=== PATIENT | female | born 1945 | race Caucasian/White ===

== ENCOUNTER 2017-01-04 14:55 | Emergency (ER) | payer MEDICARE, OTHER ==
[2017-01-04 15:00] VITALS: BP 143/67
--- NOTE | 2017-01-04 15:55 | EDM.PDOC ---
ED HISTORY OF PRESENT ILLNESS - General Chief Complaint: Respiratory Problem Stated Complaint: COUGH Time Seen by Provider: 01/04/17 15:31 Source of Information: Reports: Patient History Limitations: Reports: No limitations - History of Present Illness INITIAL COMMENTS - FREE TEXT/NARRATIVE: One week history of sinus congestion and pressure. Post nasal drip. Throat irritated. Cough. No SOB/Wheezing. Feels tired. Nausea with coughing. No vomiting/bowel changes or other GI complaints. Denies ear pain. ROS otherwise negative. No fevers/chills. Smokes almost 2PPD. - Related Data Allergies/ADRs: Allergies Allergy/AdvReac Type Severity Reaction Status Date / Time Sulfa (Sulfonamide Allergy Nausea Verified 01/04/17 15:02 Antibiotics) Home Meds: Home Meds Amoxicillin 875 mg PO BID #10 tab 01/04/17 [Rx] Lovastatin [Mevacor] 40 mg PO DAILY 01/04/17 [History] Nitrofurantoin Macrocrystal [Macrodantin] 50 mg PO DAILY 01/04/17 [History] PARoxetine HCl [Paroxetine HCl] 30 mg PO DAILY 01/04/17 [History] Pramipexole [Mirapex] 0.125 mg PO 1800 01/04/17 [History] Pramipexole [Mirapex] 2 tab PO BEDTIME 01/04/17 [History] Prednisone [IMW: predniSONE] 40 mg PO WITHBREAKFAST #10 tab 01/04/17 [Rx] Triamterene/Hydrochlorothiazid [Triamterene-HCTZ 37.5-25 MG] 1 each PO DAILY 10/11 [History] metFORMIN [Glucophage] 850 mg PO BIDMEALS 01/04/17 [History] Past Medical History Cardiovascular History: Reports: High cholesterol, Hypertension Respiratory History: Reports: COPD Musculoskeletal History: Reports: Other (see below) (restless leg) Psychiatric History: Reports: Depression Endocrine/Metabolic History: Reports: Diabetes, type II, Obesity/BMI 30+ ED ROS GENERAL - Review of Systems Review Of Systems: ROS reveals no pertinent complaints other than HPI. ED EXAM, GENERAL - Physical Exam Exam: See Below Exam Limited By: No limitations General Appearance: alert, no apparent distress, obese Eye Exam: bilateral eye: EOMI, normal inspection, PERRL Ears: normal external exam, normal canal, hearing grossly normal, normal TMs Nose: normal inspection. No: nasal drainage Throat/Mouth: Normal inspection, Normal oropharynx, Normal voice, No airway compromise Head: atraumatic, normocephalic Neck: normal inspection, supple, non-tender, full range of motion. No: lymphadenopathy (L), lymphadenopathy (R) Respiratory/Chest: no respiratory distress, lungs clear, normal breath sounds, no accessory muscle use Cardiovascular: normal peripheral pulses, regular rate, rhythm, systolic murmur Peripheral Pulses: 2+: radial (L), radial (R) GI/Abdominal: normal bowel sounds, soft, non tender Back Exam: No: CVA tenderness (L), CVA tenderness (R) Extremities: normal capillary refill Neurological: alert, oriented, normal cognition, normal gait, no motor/sensory deficits Psychiatric: normal affect, normal mood Skin Exam: Warm, Dry, Intact, Normal color Course - Vital Signs Last Recorded V/S: Last Vital Signs Temp 36.6 C 01/04/17 14:56 Pulse 72 01/04/17 14:56 Resp 20 01/04/17 14:56 BP 143/67 H 01/04/17 14:56 Pulse Ox 98 01/04/17 14:56 - Re-Assessments/Exams Free Text/Narrative Re-Assessment/Exam: 01/04/17 16:26 Given patient's history of heavy smoking and no improvement of symptoms for over 7 days, will treat with course of Amoxicillin. Discussed with patient that this could be viral in nature and antibiotics will not be of help. Smoking cessation encouraged. Patient placed on Prednisone for 5 days to help with cough. Received cough medicine and initial antibiotic doses to take home from [facility]. She will pickle maker additional Amox and the prednisone tomorrow at pharmacy. She is to follow up as needed. Departure - Departure Time of Disposition: 15:50 Disposition: Home, Self-Care 01 Condition: good Clinical Impression: Upper respiratory tract infection Qualifiers: URI type: unspecified URI Qualified Code(s): J06.9 - Acute upper respiratory infection, unspecified Prescriptions: Amoxicillin 875 mg PO BID #10 tab Prednisone [IMW: predniSONE] 40 mg PO WITHBREAKFAST #10 tab Instructions: Smoking Cessation, Tips for Success, [id number], Upper Respiratory Infection, Adult, [id number] Referrals: PCP,Unknown [Primary Care Provider] - Forms: ED Department Discharge Additional Instructions: Follow up with your primary provider if you are not improving within the next 2- 3 days. Follow up earlier if you have sudden worsening problems.
== END 2017-01-04 16:15 | disposition home or self-care (01) ==
LOC: LL.ED 14:55
DX: J06.9 Acute upper respiratory infection, unspecified (principal); E78.00 Pure hypercholesterolemia, unspecified; I10 Essential (primary) hypertension; J44.9 Chronic obstructive pulmonary disease, unspecified; F32.9 Major depressive disorder, single episode, unspecified; E11.9 Type 2 diabetes mellitus without complications; E66.9 Obesity, unspecified; Z88.2 Allergy status to sulfonamides; Z79.899 Other long term (current) drug therapy
CPT/HCPCS: 87804; 99283

== ENCOUNTER 2017-03-23 08:19 | Emergency (ER) | payer MEDICARE, OTHER ==
--- NOTE | 2017-03-23 08:38 | EDM.PDOC ---
ED HPI GENERAL MEDICAL PROBLEM - General Chief Complaint: ENT Problem Stated Complaint: Vertigo Time Seen by Provider: 03/23/17 08:25 Source of Information: Reports: Patient, EMS, EMS Notes Reviewed, Family ( ), Old Records ([facility] chart/EMR) History Limitations: Reports: No Limitations - History of Present Illness INITIAL COMMENTS - FREE TEXT/NARRATIVE: The patient was brought to the emergency room via ambulance with quarter supervisor accompaniment with saline lock placed and patient given Zofran IV with some improvement of her nausea, however persistent moderate vertigo. She has had some nonspecific intermittent vertigo for the last couple of days with significantly exacerbated symptoms since about 2 a.m. this morning, when she went to the bathroom. She does have a history of chronic intermittent vertigo in the past and has been noncompliant with her medications, including meclizine etc. She did not take her morning medications. Her Accu-Chek at home earlier this morning was 156 mg percent. The patient denies any chest pain/pressure, heart flutter, orthostasis, orthopnea, diaphoresis, paresthesias, recent decreased exercise tolerance, or any other anginal-type symptoms. No recent history of abdominal pain, heartburn, diarrhea, melena, gross hematochezia, or any food intolerance, including fatty foods, etc.. She has been compliant with her daily catheterizations and uroprophylaxis with no current UTI symptoms. Patient has had a two-month history of yellowish greenish nasal drainage and sinus pressure with distant antibiotic therapy of unknown type, however no recent history of fever or known exposure to infection. She denies any pain or discomfort Onset: Today, Gradual Onset Date: 03/23/17 Onset Time: 02:00 Duration: Constant Quality: Reports: Same as Previous Episode Improves with: Reports: Rest Worsens with: Reports: Movement Context: Reports: Other (As above) Associated Symptoms: Reports: Nausea/Vomiting (No emesis). Denies: Confusion, Chest Pain, Cough, Diaphoresis, Fever/Chills, Headaches, Loss of Appetite, Malaise, Rash, Seizure, Shortness of Breath, Syncope, Weakness Treatments FLOATER OPERATOR: Reports: IV/IO, Other Medication(s) (As above), Other (see below ) (As above) - Related Data Allergies Allergy/AdvReac Type Severity Reaction Status Date / Time Sulfa (Sulfonamide Allergy Nausea Verified 03/23/17 08:32 Antibiotics) Home Meds: Home Meds Lovastatin [Mevacor] 40 mg PO DAILY 01/04/17 [History] Nitrofurantoin Macrocrystal [Macrodantin] 50 mg PO DAILY 01/04/17 [History] PARoxetine HCl [Paroxetine HCl] 30 mg PO DAILY 01/04/17 [History] Pramipexole [Mirapex] 2 tab PO 1800 01/04/17 [History] Triamterene/Hydrochlorothiazid [Triamterene-HCTZ 37.5-25 MG] 1 each PO DAILY 10/11 [History] metFORMIN [Glucophage] 850 mg PO BIDMEALS 01/04/17 [History] Ciprofloxacin HCl [Cipro] 500 mg PO BID #14 tablet 03/23/17 [Rx] Fish Oil/[place]-3 Fatty Acids [Fish Oil 1,000 MG] 1 cap PO DAILY 03/23/17 [ History] Flaxseed/Omega3,6,9/Fatty Acid [Flax Seed Oil 1,300 mg Softgel] 1 cap PO DAILY 03/23/17 [History] Meclizine HCl 25 mg PO Q6HR PRN #0 03/23/17 [Rx] Melatonin 2 tab PO BEDTIME PRN 03/23/17 [History] Past Medical History HEENT History: Reports: Cataract, Impaired Vision, Other (See Below). Denies: Allergic Rhinitis, Glaucoma, Hard of Hearing, Macular Degeneration, Retinal Detachment Other HEENT History: Patient wears glasses with no history of diabetic retinopathy, chronic vertigo Cardiovascular History: Reports: Arrhythmia, CAD, Heart Failure, Heart Murmur, High Cholesterol, Hypertension, Other (See Below). Denies: Afib, Aneurysm, Automatic Implantable Cardioverter Defibrillators, Blood Clots/VTE/DVT, HI, Pacemaker, PTCA, PVD, Stents, Syncope Other Cardiovascular History: History of WPW with cardiac ablation as below, coronary artery disease with probable anterolateral cardiac ischemia, no history of HI or other cardiac procedures, complete right bundle branch block; PACs, PVCs, and occasional couplets with exercise, cardiomegaly with left atrial enlargement and history of mild mitral valve insufficiency and tricuspid valve insufficiency by echocardiogram, dyslipidemia Respiratory History: Reports: Bronchitis, Recurrent, COPD, Intubation, Previous. Denies: Asthma, PE, Pneumothorax, Sleep Apnea, TB Gastrointestinal History: Reports: Colon Polyp, Diverticulosis, GERD, Hemorrhoids, Other (See Below). Denies: Bowel Obstruction, Celiac Disease, Cholelithiasis, Chronic Constipation, Chronic Diarrhea, Fecal Incontinence, Gastritis, GI Bleed, Hepatitis, Inflammatory Bowel Disease, Irritable Bowel Syndrome, Jaundice, Pancreatitis Other Gastrointestinal History: History of multiple colonic polyps including hyperplastic colonic polyps in the rectosigmoid region with polyps of unknown character in the transverse colon and hepatic flexure Genitourinary History: Reports: Diabetic Nephropathy, Retention, Urinary, Urinary Incontinence, UTI, Recurrent, Other (See Below). Denies: Acute Renal Failure, Chronic Renal Insuffiency, Renal Calculus, STD Other Genitourinary History: Urethral stenosis with daily self-catheterization, benign renal cysts, history of microalbuminemia with no significant decreased renal function QUANTITATIVE DEVELOPER History: Reports: Endometriosis, . Denies: Dysfunctional Uterine Bleeding, Fibroids, Spontaneous : 1 Para: 1 (Full term without complications during pregnancies or deliveries) LMP (Approximate): Menopausal (Surgical menopause secondary to endometriosis) Musculoskeletal History: Reports: Arthritis, Back Pain, Chronic, Fracture, Neck Pain, Chronic, Osteoarthritis, Osteoporosis, Other (See Below). Denies: Amputation, Gout, RA, SLE Other Musculoskeletal History: Left 10th rib fracture on 06/14/12 Neurological History: Reports: Neuropathy, Diabetic, Neuropathy, Peripheral, Other (See Below). 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 Denies: Abuse , Victim of, ADD, ADHD, Addiction, Psych Hospitalization(s), PTSD, Suicide Attempt, Suicidal Ideation Endocrine/Metabolic History: Reports: Diabetes, Type II, Osteoporosis. Denies: Hypothyroidism Hematologic History: Reports: None, Anemia. Denies: Blood Transfusion(s), Iron Deficiency Immunologic History: Reports: None. Denies: AIDS, HIV, SLE Oncologic (Cancer) History: Reports: None. Denies: Basal Cell Carcinoma, Breast , Cervix, Colon, Hodgkin's Lymphoma, Leukemia, Lymphoma, Malignant Melanoma, Non -Hodgkin's Lymphoma, Ovarian, Squamous Cell Carcinoma, Uterine Dermatologic History: Reports: None. Denies: Eczema, Psoriasis - Infectious Disease History Infectious Disease History: Reports: Measles. Denies: C-Difficile, Chicken Pox (Uncertain), Meningitis, Mononucleosis, MRSA, Mumps, Pertussis (Whooping Cough) , Rheumatic Fever, Rubella, Scarlet Fever, Shingles, TB, VRE - Past Surgical History Head Surgeries/Procedures: Reports: None HEENT Surgical History: Reports: Cataract Surgery, Oral Surgery, Other (See Below). Denies: Adenoidectomy, Eye Surgery, Laser Surgery, LASIK, Myringotomy w Tube(s), Naso-Sinus Surgery, Tonsillectomy Other HEENT Surgeries/Procedures: Bilateral cataract surgery in 2016, multiple teeth extractions with complete upper dentures Cardiovascular Surgical History: Reports: Cardiac Ablation, Other (See Below). 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 Denies: Thoracentesis GI Surgical History: Reports: Colonoscopy, Polypectomy, Other (See Below). Denies: Appendectomy, Cholecystectomy, EGD, Hernia, Abdominal, Hernia, Inguinal , Hernia Repair/Other Other GI Surgeries/Procedures: Last colonoscopy in late 2008 at [facility] with previous colonoscopy in our facility on 07/19/09 with barium enema as below Female Surgical History: Reports: Breast Biopsy (Breast biopsy in her late 20s for benign disease-side unknown), Hysterectomy, Salpingo-Oophorectomy, Other (See Below). Denies: Section Other Female Surgeries/Procedures: Complete hysterectomy with bilateral salpingo-oophorectomy in her late 20s secondary to endometriosis Endocrine Surgical History: Reports: None. Denies: Thyroid Biopsy Neurological Surgical History: Reports: None. Denies: C-Spine, Discectomy, Laminectomy, Lumbar Spine, Spinal Fusion, Vertebroplasty Musculoskeletal Surgical History: Reports: None. Denies: Arthroscopic Procedure , Carpal Tunnel, Ganglion Cyst, Joint Replacement, ORIF, Shoulder Surgery Oncologic Surgical History: Reports: None Dermatological Surgical History: Reports: None - Past Imaging History Past Imaging History: Reports: Angiography (Heart catheterization in 2002), Barium Enema (08/02/09 with lesions and possible polyps noted in the transverse colon and hepatic flexure as above), Cardiac Echo (08/26/08 with ejection fraction of 65%), CAT Scan (Head on 06/16/08), DEXA Scan (08/08/11), PFT (04/29/05) , Stress Testing (Suboptimal Cardiolite stress test on 04/13/03 with findings as above), Ultrasound (Renal ultrasound on 12/25/08) Social & Family History - Family History Cardiac: Reports: CAD, Heart Murmur, Hypertension, HI, Other (See Below). Denies: High Cholesterol Other Cardiac Family History: Father with fatal HI at age 52, mother with CHF, hypertension in parents and 3 sisters, one sister with heart murmur secondary to rheumatic disease, 2 sisters with coronary artery disease with 1 having a CABG Psychiatric: Reports: Anxiety, Depression, Other (See Below) Other Psychiatric Family History: Brother with alcohol abuse and anxiety depression disorder Endocrine/Metabolic: Reports: Diabetes, type II, IDDM, Other (See Below). Denies: Hypothyroidism Other Endocrine/Metabolic Family History: Mother with hypothyroidism, father and son with AODM with mother and sister having IDDM, Oncologic: Reports: Colon, Other (See Below) Other Oncologic Family History: Sister with colon cancer in her 50s, brother with fatal prostate cancer in his 50s - Tobacco Use Smoking Status *Q: Current Every Day Smoker Tobacco Use Within Last Twelve Months: Cigarettes Years of Tobacco use: 57 Packs/Tins Daily: 2 Smoking Cessation Information Provided To Patient: Yes Second Hand Smoke Exposure: Yes Second Hand Smoke Education Provided: Yes - Caffeine Use Caffeine Use: Reports: None. Denies: Coffee, Energy Drinks, Soda, Tea - Alcohol Use Alcohol Use History: No Days Per Week of Alcohol Use: 0 (No previous DWIs, problems with alcohol abuse, etc.) Alcohol Use in Last Twelve Months: No - Recreational Drug Use Recreational Drug Use: No Drug Use in Last 12 Months: No Recreational Drug Type: Denies: Amphetamines (Speed), Cocaine, Heroin, Inhalants (Glues, Solvents, Aerosols), LSD (Acid), Marijuana/Hashish, Methamphetamine, Methaqualone, Morphine - Living Situation & Occupation Living situation: Reports: (1965, one child), with Family (, 3 great grandchildren and her granddaughter) 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 Denies: Fever, Chills, Weakness, Fatigue , Night Sweats, Diaphoresis, Decreased Appetite, Weight Loss, Weight Gain HEENT: Reports: Glasses, Rhinitis, Sinus Problem, Vertigo. Denies: Contact Lenses, Dental Pain, Ear Pain, Eye Discharge, Eye Pain, Hearing Loss, Nosebleed , Throat Pain, Throat Swelling, Vision Change Respiratory: Reports: No Symptoms. Denies: Shortness of Breath, Wheezing, Pleuritic Chest Pain, Cough Cardiovascular: Reports: Lightheadedness. Denies: Chest Pain, Blood Pressure Problem, Claudication, Dyspnea on Exertion, Edema, Orthopnea, Palpitations, PND , Syncope Endocrine: Reports: High Glucose (As above). Denies: Fatigue, Low Glucose, Polydypsia, Polyuria GI/Abdominal: Reports: Nausea. Denies: Abdominal Pain, Anorexia, Black Stool, Bloody Stool, Constipation, Diarrhea, Decreased Appetite, Difficulty Swallowing , Distension, Flatus, Hematemesis, Hematochezia, Melena, Stool Incontinence, Vomiting : Reports: Urinary Retention (Chronic). Denies: Dysuria, Flank Pain, Frequency, Hematuria, Incontinence, Irregular Menses, Urgency Musculoskeletal: Reports: No Symptoms. Denies: Neck Pain, Shoulder Pain, Arm Pain, Back Pain, Leg Pain, Joint Pain, Joint Swelling, Muscle Pain Skin: Reports: No Symptoms. Denies: Diaphoresis, Pruritis, Rash, Wound Neurological: Reports: Dizziness, Numbness (As below), Paresthesia (Stable chronic), Tingling (As above), Other (Exacerbation of vertigo as above, chronic restless leg syndrome). Denies: Confusion, Headache, Syncope, Tremors, Trouble Speaking, Difficulty Walking, Weakness, Change in Speech, Gait Disturbance Psychiatric: Reports: No Symptoms. Denies: Agitation, Anxiety, Confusion, Depression, Hallucinations Hematologic/Lymphatic: Reports: No Symptoms Immunologic: Reports: No Symptoms ED EXAM, GENERAL - Physical Exam Exam: See Below Exam Limited By: No Limitations General Appearance: Alert, WD/WN, No Apparent Distress, Anxious (Mild) Eye Exam: Bilateral Eye: EOMI, Normal Fundi, Normal Inspection (With some vertigo without nystagmus with head movement), PERRL Ears: Normal External Exam, Normal Canal, Hearing Grossly Normal, Normal TMs Nose: Normal Mucosa, No Blood, Other (Moderate greenish yellowish nasal drainage ). No: Nasal Tenderness, Nasal Deformity Throat/Mouth: Normal Inspection, Normal Lips, Normal Gums, Normal Oropharynx, Normal Voice, No Airway Compromise. No: Normal Teeth (Complete upper dentures with multiple missing teeth lowers), Dysphagia, Inflammation Head: Atraumatic, Normocephalic. No: Facial Swelling, Facial Tenderness, Sinus Tenderness Neck: Supple, Non-Tender, Full Range of Motion, Carotid Bruit (Mild bilateral carotid bruits versus transmitted heart sound). No: Lymphadenopathy (L), Lymphadenopathy (R), Thyromegaly Respiratory/Chest: No Respiratory Distress, No Accessory Muscle Use, Chest Non- Tender, Rhonchi (Occasional), Wheezing (Occasional bilateral). No: Rales, Pleural Rub, Retractions Cardiovascular: Normal Peripheral Pulses, Regular Rate, Rhythm, No Edema, No Gallop, No JVD, No Rub, Systolic Murmur (Mild 1/6 ARMIDA at the aortic valve). No : Extra Beats (No extrasystoles at time of exam) Peripheral Pulses: 2+: Radial (L), Radial (R), Dorsalis Pedis (L), Dorsalis Pedis (R) GI/Abdominal: Normal Bowel Sounds, Soft, Non-Tender, No Organomegaly, No Distention, No Abnormal Bruit, No Mass. No: Guarding (Female) Exam: Deferred Rectal (Female) Exam: Deferred Back Exam: Normal Inspection, Full Range of Motion. No: CVA Tenderness (L), CVA Tenderness (R) Extremities: Normal Inspection, Normal Range of Motion, Non-Tender, No Pedal Edema, Normal Capillary Refill. No: Pedal Edema, Niharika's Sign Neurological: Alert, Oriented, CN II-XII Intact, Normal Cognition, Normal Gait ( Although vertigo as below), Normal Reflexes (Negative Babinski's), No Motor/ Sensory Deficits Psychiatric: Anxious (Mild), Depressed Mood (Mild with adequate eye contact) Skin Exam: Warm, Dry, Intact, Normal Color, No Rash. No: Diaphoretic, Wound/ Incision Lymphatic: No Adenopathy Course - Vital Signs Last Recorded V/S: Last Vital Signs Temp 37.1 C 03/23/17 08:20 Pulse 66 03/23/17 09:45 Resp 19 03/23/17 09:45 BP 121/80 03/23/17 09:45 Pulse Ox 94 L 03/23/17 09:45 Vital Signs - 24 hr 03/23/17 03/23/17 03/23/17 08:20 08:31 08:45 Temperature [ 37.1 C Oral] Pulse, 66 Peripheral Pulse, 70 67 Peripheral [ Pulse Oximetry] Respiratory 16 17 Rate Blood Pressure 144/101 H Blood Pressure 162/80 H 144/101 H [Right Upper Arm] O2 Sat by Pulse 91 L 91 L Oximetry 03/23/17 03/23/17 03/23/17 08:48 09:12 09:30 Temperature [ Oral] Pulse, Peripheral Pulse, 67 63 64 Peripheral [ Pulse Oximetry] Respiratory 18 16 19 Rate Blood Pressure Blood Pressure 139/79 133/77 147/84 H [Right Upper Arm] O2 Sat by Pulse 91 L 94 L 92 L Oximetry 03/23/17 09:45 Temperature [ Oral] Pulse, Peripheral Pulse, 66 Peripheral [ Pulse Oximetry] Respiratory 19 Rate Blood Pressure Blood Pressure 121/80 [Right Upper Arm] O2 Sat by Pulse 94 L Oximetry - Orders/Labs/Meds Orders: Active Orders 24 hr Category Date Time Status Cardiac Monitoring [RC] . DIRECTED Care 03/23/17 08:41 Active Peripheral IV Care [RC] . DIRECTED Care 03/23/17 08:39 Active Sodium Chloride 0.9% [Saline Flush] Med 03/23/17 08:39 Active 10 ml FLUSH ASDIRECTED PRN Peripheral IV Insertion Adult [OM.PC] Routine Oth 03/23/17 08:39 Ordered Medication Orders Sodium Chloride (Saline Flush) 10 ml FLUSH ASDIRECTED PRN PRN Reason: Keep Vein Open Last Admin: 03/23/17 08:46 Dose: 10 ml Labs: Laboratory Tests 03/23/17 03/23/17 03/23/17 Range/Units 08:50 08:50 08:50 WBC 7.9 (4.0-10.2) K/uL RBC 4.63 (3.77-5.09) M/uL Hgb 13.5 (11.7-15.5) g/dL Hct 41.0 (34.0-46.0) % MCV 88.6 (84.0-98.0) fL MCH 29.2 (28.2-33.3) pg MCHC 32.9 (31.7-36.0) g/dL RDW 13.7 (11.2-14.1) % Plt Count 269 (150-350) K/uL Neut % (Auto) 60.3 (45.0-80.0) % Lymph % (Auto) 30.2 (10.0-50.0) % [place] % (Auto) 8.0 (2.0-14.0) % Eos % (Auto) 1.0 (0.0-5.0) % Baso % (Auto) 0.5 (0.0-2.0) % Neut # (Auto) 4.74 (1.40-7.00) K/uL Lymph # (Auto) 2.38 (0.50-3.50) K/uL [place] # (Auto) 0.63 (0.00-1.00) K/uL Eos # (Auto) 0.08 (0.00-0.50) K/uL Baso # (Auto) 0.04 (0.00-0.20) K/uL Sodium 143 (136-145) mmol/L Potassium 3.7 (3.5-5.1) mmol/L Chloride 107 (98-107) mmol/L Carbon Dioxide 27.5 (21.0-32.0) mmol/L BUN 13 (7-18) mg/dL Creatinine 0.61 (0.51-1.17) mg/dL Est Cr Clr Drug Dosing TNP Estimated GFR (MDRD) > 60 mL/min Glucose 170 H (74-106) mg/dL Hemoglobin A1c 7.1 H (4.3-5.7) % Lactic Acid (0.4-2.0) mmol/L Uric Acid 4.3 (2.6-7.2) mg/dL Calcium 8.7 (8.5-10.1) mg/dL Magnesium 1.8 (1.8-2.4) mg/dL Total Bilirubin 0.2 (0.2-1.0) mg/dL AST 15 (15-37) U/L ALT 19 (12-78) U/L Alkaline Phosphatase 101 (46-116) IU/L Total Protein 6.4 (6.4-8.2) g/dL Albumin 3.2 L (3.4-5.0) g/dL 03/23/17 Range/Units 08:50 WBC (4.0-10.2) K/uL RBC (3.77-5.09) M/uL Hgb (11.7-15.5) g/dL Hct (34.0-46.0) % MCV (84.0-98.0) fL MCH (28.2-33.3) pg MCHC (31.7-36.0) g/dL RDW (11.2-14.1) % Plt Count (150-350) K/uL Neut % (Auto) (45.0-80.0) % Lymph % (Auto) (10.0-50.0) % [place] % (Auto) (2.0-14.0) % Eos % (Auto) (0.0-5.0) % Baso % (Auto) (0.0-2.0) % Neut # (Auto) (1.40-7.00) K/uL Lymph # (Auto) (0.50-3.50) K/uL [place] # (Auto) (0.00-1.00) K/uL Eos # (Auto) (0.00-0.50) K/uL Baso # (Auto) (0.00-0.20) K/uL Sodium (136-145) mmol/L Potassium (3.5-5.1) mmol/L Chloride (98-107) mmol/L Carbon Dioxide (21.0-32.0) mmol/L BUN (7-18) mg/dL Creatinine (0.51-1.17) mg/dL Est Cr Clr Drug Dosing Estimated GFR (MDRD) mL/min Glucose (74-106) mg/dL Hemoglobin A1c (4.3-5.7) % Lactic Acid 0.9 (0.4-2.0) mmol/L Uric Acid (2.6-7.2) mg/dL Calcium (8.5-10.1) mg/dL Magnesium (1.8-2.4) mg/dL Total Bilirubin (0.2-1.0) mg/dL AST (15-37) U/L ALT (12-78) U/L Alkaline Phosphatase (46-116) IU/L Total Protein (6.4-8.2) g/dL Albumin (3.4-5.0) g/dL Meds: Medications Generic Name Dose Route Start Last Admin Trade Name Freq PRN Reason Stop Dose Admin Sodium Chloride 10 ml 03/23/17 08:39 03/23/17 08:46 Saline Flush FLUSH 10 ml ASDIRECTED PRN Administration Keep Vein Open Discontinued Medications Generic Name Dose Route Start Last Admin Trade Name Freq PRN Reason Stop Dose Admin Diazepam 2.5 mg 03/23/17 08:39 Valium IVPUSH 03/23/17 08:40 ONETIME ONE Metoprolol Tartrate 2.5 mg 03/23/17 08:40 03/23/17 08:45 Lopressor IVPUSH 03/23/17 08:41 2.5 mg ONETIME ONE Administration Promethazine HCl 50 mg 03/23/17 08:40 03/23/17 08:47 Phenergan IM 03/23/17 08:41 50 mg ONETIME ONE Administration Diazepam not given - Radiology Interpretation Free Text/Narrative:: Senior Sales Representative shows normal sinus rhythm with very occasional PACs and no other ectopy or arrhythmia Departure - Departure Time of Disposition: 10:45 Disposition: Home, Self-Care 01 Condition: good Clinical Impression: Vertigo, Tobacco abuse counseling, Microalbuminuria, Dyslipidemia, Peptic reflux disease, Urethral stenosis, Mixed anxiety depressive disorder, Restless leg syndrome, Hypoalbuminemia Sinusitis Qualifiers: Sinusitis location: unspecified location Chronicity: acute Recurrence: non- recurrent Qualified Code(s): J01.90 - Acute sinusitis, unspecified Coronary artery disease Qualifiers: Coronary Disease-Associated Artery/Lesion type: [place] artery [place] vs. transplanted heart: [place] heart Associated angina: without angina Qualified Code(s): I25.10 - Atherosclerotic heart disease of 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 Follow up with your regular provider in 10-14 days as needed, if symptoms persist. 2. Sedation precautions with no driving, etc. for 12 hours because of emergency room medications. May take additional meclizine in 4 hours as directed with sedation precautions also with this medication 3. Strict fall precautions with ambulation with assist until symptoms resolve as discussed. Continue strict walker use. Your has been provided a work excuse 4. Stop all tobacco use ESTEVAN as directed/per provided information and consider contacting Quit [employer]ne, etc.. 5. Tylenol 650 mg by mouth every 4 hours and/or OTC ibuprofen 2-3 tabs by mouth every 6 hours with food as directed./needed. 6. Complete full 10 day course of Cipro as discussed - Problem List & Annotations (1) Vertigo SNOMED Code(s): 516124698 Code(s): R42 - DIZZINESS AND GIDDINESS Status: Acute Priority: High Onset Date: ~03/22/17 Annotation/Comment:: IM Phenergan given in the emergency room with some improvement of her symptoms prior to discharge. Various therapeutic options were discussed with the patient and her , including hospitalization, IM Depo-Medrol therapy, etc., which they did not wish to have. Symptomatic relief as per discharge instructions, including compliance with meclizine therapy. Sinusitis may be a contributing factor. Activity restrictions, fall precautions, etc. discussed with the patient already having a walker at home. The patient's was provided a work excuse so that he can better watch his with return to work depending on her clinical course. (2) Sinusitis SNOMED Code(s): 87420539 Code(s): J32.9 - CHRONIC SINUSITIS, UNSPECIFIED Status: Acute Priority: High Annotation/Comment:: Initiate Cipro therapy with 10 days of therapy prescribed in 3 days of samples given from the emergency room Qualifiers: Sinusitis location: unspecified location Chronicity: acute Recurrence: non-recurrent Qualified Code(s): J01.90 - Acute sinusitis, unspecified (3) Hypertension SNOMED Code(s): 53023954 Code(s): I10 - ESSENTIAL (PRIMARY) HYPERTENSION Status: Chronic Priority : Medium Annotation/Comment:: Blood pressure somewhat elevated on arrival with overall good response to low-dose IV Lopressor. Patient strongly encouraged to take her medications ESTEVAN on returning to home with medication compliance also strongly encouraged Qualifiers: Hypertension type: essential hypertension Qualified Code(s): I10 - Essential (primary) hypertension (4) COPD (chronic obstructive pulmonary disease) SNOMED Code(s): 00059789 Code(s): J44.9 - CHRONIC OBSTRUCTIVE PULMONARY DISEASE, UNSPECIFIED Status : Chronic Priority: Medium Annotation/Comment:: Stable by patient history with no recent for bronchitic-type symptoms and no current inhaler or nebulizer therapy Qualifiers: COPD type: emphysema Emphysema type: panlobular Qualified Code(s): J43.1 - Panlobular emphysema (5) Coronary artery disease SNOMED Code(s): 64140065 Code(s): I25.10 - ATHSCL HEART DISEASE OF [place] CORONARY ARTERY W/O ANG PCTRS Status: Chronic Priority: Medium Annotation/Comment:: Stable by patient history with no recent anginal complaints Qualifiers: Coronary Disease-Associated Artery/Lesion type: [place] artery [place] vs. transplanted heart: [place] heart Associated angina: without angina Qualified Code(s): I25.10 - Atherosclerotic heart disease of [place] coronary artery without angina pectoris (6) Diabetes mellitus SNOMED Code(s): 11070700 Code(s): E11.9 - TYPE 2 DIABETES MELLITUS WITHOUT COMPLICATIONS Status: Chronic Priority: Medium Annotation/Comment:: Stable by patient history with somewhat elevated glycosylated hemoglobin today. 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 Qualified Code(s): E11.42 - Type 2 diabetes mellitus with diabetic polyneuropathy (7) Dyslipidemia SNOMED Code(s): 809571311 Code(s): E78.5 - HYPERLIPIDEMIA, UNSPECIFIED Status: Chronic Priority: Medium Annotation/Comment:: Currently under therapy (8) Microalbuminuria SNOMED Code(s): 165940225 Code(s): R80.9 - PROTEINURIA, UNSPECIFIED Status: Chronic Priority: Medium Annotation/Comment:: Mild microalbuminuria by history with probable mild diabetic nephropathy although normal BUN/creatinine today (9) Mixed anxiety depressive disorder SNOMED Code(s): 499456497 Code(s): F41.8 - OTHER SPECIFIED ANXIETY DISORDERS Status: Chronic Priority: Medium Annotation/Comment:: Stable by history. Continue to observe closely by regular provider (10) Osteoarthritis SNOMED Code(s): 477142164 Code(s): M19.90 - UNSPECIFIED OSTEOARTHRITIS, UNSPECIFIED SITE Status: Chronic Priority: Medium Annotation/Comment:: Stable by history Qualifiers: Osteoarthritis location: multiple joints Osteoarthritis type: primary Qualified Code(s): M15.0 - Primary generalized (osteo)arthritis (11) Peptic reflux disease SNOMED Code(s): 50018879 Code(s): K21.9 - GASTRO-ESOPHAGEAL REFLUX DISEASE WITHOUT ESOPHAGITIS Status: Chronic Priority: Medium Annotation/Comment:: Stable by history (12) Tobacco abuse counseling SNOMED Code(s): 133140611, 837616916, 162659748 Code(s): Z71.6 - TOBACCO ABUSE COUNSELING Status: Chronic Priority: Medium Annotation/Comment:: Tobacco cessation strongly encouraged both for the patient and her with information provided (13) Urethral stenosis SNOMED Code(s): 994788502 Code(s): N35.9 - URETHRAL STRICTURE, UNSPECIFIED Status: Chronic Priority : Medium Annotation/Comment:: Chronic urinary retention with self catheterization required. No current UTI symptoms with the patient not wishing to have a UA checked today. Continue Macrodantin prophylaxis (14) Restless leg syndrome SNOMED Code(s): 70835023 Code(s): G25.81 - RESTLESS LEGS SYNDROME Status: Chronic Priority: Medium Annotation/Comment:: Moderate control by history. Continue to observe closely by her regular provider (15) Hypoalbuminemia SNOMED Code(s): 093184448 Code(s): E88.09 - OTH DISORDERS OF PLASMA-PROTEIN METABOLISM, NEC Status: Acute Priority: Medium Onset Date: ~03/23/17 Annotation/Comment:: Consider high-protein Glucerna supplements as snacks - Problem List Review Problem List Initiated/Reviewed/Updated: Yes - My Orders Last 24 Hours: My Active Orders 03/23/17 08:39 Peripheral IV Care [RC] . DIRECTED Sodium Chloride 0.9% [Saline Flush] 10 ml FLUSH ASDIRECTED PRN Peripheral IV Insertion Adult [OM.PC] Routine 03/23/17 08:41 Cardiac Monitoring [RC] . DIRECTED - Assessment/Plan Last 24 Hours: My Active Orders 03/23/17 08:39 Peripheral IV Care [RC] . DIRECTED Sodium Chloride 0.9% [Saline Flush] 10 ml FLUSH ASDIRECTED PRN Peripheral IV Insertion Adult [OM.PC] Routine 03/23/17 08:41 Cardiac Monitoring [RC] . DIRECTED Assessment:: As above Plan: As above. Extensive precautions were given to the patient and her , who are in agreement with the treatment plan. See Patient Instructions for further treatment and plan.
[2017-03-23] MEDS ORDERED: Sodium Chloride 0.9% 10 ML Syringe FLUSH PRN (08:39)
[2017-03-23] MEDS ORDERED: Metoprolol Tartrate 5 MG/5 ML SDV IVPUSH ONE (08:40)
[2017-03-23] MEDS ORDERED: Promethazine 25 MG/ML SDV IM ONE (08:40)
[2017-03-23 09:16] LABS: CHLORIDE,CL 107 mmol/L (98-107); SODIUM,NA 143 mmol/L (136-145)
[2017-03-23 10:48] VITALS: BP 121/80
== END 2017-03-23 10:45 | disposition home or self-care (01) ==
LOC: LL.ED 08:19
DX: J01.90 Acute sinusitis, unspecified (principal); J43.1 Panlobular emphysema; Z98.890 Other specified postprocedural states; I25.10 Atherosclerotic heart disease of native coronary artery without angina pectoris; I11.0 Hypertensive heart disease with heart failure; F41.8 Other specified anxiety disorders; K21.9 Gastro-esophageal reflux disease without esophagitis; E78.5 Hyperlipidemia, unspecified; E88.09 Other disorders of plasma-protein metabolism, not elsewhere classified; G25.81 Restless legs syndrome; E11.42 Type 2 diabetes mellitus with diabetic polyneuropathy; M15.0 Primary generalized (osteo)arthritis; I50.9 Heart failure, unspecified; E78.00 Pure hypercholesterolemia, unspecified; E11.21 Type 2 diabetes mellitus with diabetic nephropathy; F17.210 Nicotine dependence, cigarettes, uncomplicated; Z88.2 Allergy status to sulfonamides; Z79.899 Other long term (current) drug therapy; Z98.41 Cataract extraction status, right eye; Z98.42 Cataract extraction status, left eye; Z90.710 Acquired absence of both cervix and uterus; Z71.6 Tobacco abuse counseling
CPT/HCPCS: 36415; 80053; 83036; 83605; 83735; 84550; 85025; 96372; 96374; 99285; J2550; J7050; 99284; J3490

== ENCOUNTER 2019-01-29 15:28 | Emergency (ER) | payer MEDICARE, OTHER ==
[2019-01-29 16:09] VITALS: BP 145/80
--- NOTE | 2019-01-29 16:18 | EDM.PDOC ---
ED HPI GENERAL MEDICAL PROBLEM - General Chief Complaint: Gastrointestinal Problem Stated Complaint: Abdominal bloating, discomfort, post. colonoscopy Time Seen by Provider: 01/29/19 16:12 Source of Information: Reports: Patient History Limitations: Reports: No Limitations - History of Present Illness INITIAL COMMENTS - FREE TEXT/NARRATIVE: Patient comes to ER for evaluation of abdominal bloating and mild discomfort 24 hours after colonoscopy that was performed at [facility]. Was told to come to the ER for evaluation after calling [facility] to discuss this complaint. Had single polyp removed yesterday. Once released, patient went to [facility] and had supper. Slept well overnight. Noticed some bloating when she woke up. Had soup and pudding. No problems eating. [place] more bloated afterwards. Has not had a bowel movement since the procedure but has passed gas. Has urinated 3-4 times without difficulty. No fevers or chills. Denies HEENT/Resp/CV/Neuro changes. No nausea or emesis, but feels like she needs to burp. Has been burping more than usual today. Symptoms have improved since leaving home to come to the ER. Abdomen Pain Score (Numeric/FACES): 4 - Related Data Allergies Allergy/AdvReac Type Severity Reaction Status Date / Time Sulfa (Sulfonamide Allergy Nausea Verified 01/29/19 15:59 Antibiotics) Home Meds: Home Meds Lovastatin [Mevacor] 40 mg PO DAILY 01/04/17 [History] Nitrofurantoin Macrocrystal [Macrodantin] 50 mg PO DAILY 01/04/17 [History] PARoxetine HCl [Paroxetine HCl] 30 mg PO DAILY 01/04/17 [History] Pramipexole [Mirapex] 2 tab PO DAILY@1800 01/04/17 [History] Triamterene/Hydrochlorothiazid [Triamterene-HCTZ 37.5-25 MG] 1 each PO DAILY 10/11 [History] metFORMIN [Glucophage] 850 mg PO BIDMEALS 01/04/17 [History] Melatonin 1 tab PO BEDTIME 03/23/17 [History] Aspirin [Ecotrin] 325 mg PO DAILY 01/29/19 [History] Meclizine HCl 12.5 mg PO Q4HR PRN 01/29/19 [History] Pramipexole [Mirapex] 0.25 mg PO BEDTIME 01/29/19 [History] traZODone HCl [Trazodone HCl] 50 mg PO BEDTIME PRN 01/29/19 [History] Past Medical History HEENT History: Reports: Cataract, Impaired Vision, Other (See Below) Other HEENT History: Patient wears glasses with no history of diabetic retinopathy, chronic vertigo Cardiovascular History: Reports: Arrhythmia, CAD, Heart Failure, Heart Murmur, High Cholesterol, Hypertension, Other (See Below) Other Cardiovascular History: History of WPW with cardiac ablation as below, coronary artery disease with probable anterolateral cardiac ischemia, no history of NH or other cardiac procedures, complete right bundle branch block; PACs, PVCs, and occasional couplets with exercise, cardiomegaly with left atrial enlargement and history of mild mitral valve insufficiency and tricuspid valve insufficiency by echocardiogram, dyslipidemia Respiratory History: Reports: Bronchitis, Recurrent, COPD, Intubation, Previous Gastrointestinal History: Reports: Colon Polyp, Diverticulosis, GERD, Hemorrhoids, Other (See Below) Other Gastrointestinal History: History of multiple colonic polyps including hyperplastic colonic polyps in the rectosigmoid region with polyps of unknown character in the transverse colon and hepatic flexure Genitourinary History: Reports: Diabetic Nephropathy, Retention, Urinary, Urinary Incontinence, UTI, Recurrent, Other (See Below) Other Genitourinary History: Urethral stenosis with daily self-catheterization, benign renal cysts, history of microalbuminemia with no significant decreased renal function MINE EXPERT History: Reports: Endometriosis, Musculoskeletal History: Reports: Arthritis, Back Pain, Chronic, Fracture, Neck Pain, Chronic, Osteoarthritis, Osteoporosis, Other (See Below) Other Musculoskeletal History: Left 10th rib fracture on 06/14/12 Neurological History: Reports: Neuropathy, Diabetic, Neuropathy, Peripheral, Other (See Below) Other Neuro History: Restless leg syndrome, 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, chronic vertigo Psychiatric History: Reports: Anxiety, Depression, Panic Attack Endocrine/Metabolic History: Reports: Diabetes, Type II, Osteoporosis Hematologic History: Reports: None, Anemia Immunologic History: Reports: None Oncologic (Cancer) History: Reports: None Dermatologic History: Reports: None - Infectious Disease History Infectious Disease History: Reports: Measles - Past Surgical History Head Surgeries/Procedures: Reports: None HEENT Surgical History: Reports: Cataract Surgery, Oral Surgery, Other (See Below) Other HEENT Surgeries/Procedures: Bilateral cataract surgery in 2016, multiple teeth extractions with complete upper dentures Cardiovascular Surgical History: Reports: Cardiac Ablation, Other (See Below) Other Cardiovascular Surgeries/Procedures: 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 Respiratory Surgical History: Reports: None GI Surgical History: Reports: Colonoscopy, Polypectomy, Other (See Below) Other GI Surgeries/Procedures: Last colonoscopy in late 2008 at [facility] with previous colonoscopy in our facility on 07/19/09 with barium enema as below Female Surgical History: Reports: Breast Biopsy, Hysterectomy, Salpingo- Oophorectomy, Other (See Below) Other Female Surgeries/Procedures: Complete hysterectomy with bilateral salpingo-oophorectomy in her late 20s secondary to endometriosis Endocrine Surgical History: Reports: None Neurological Surgical History: Reports: None Musculoskeletal Surgical History: Reports: None Oncologic Surgical History: Reports: None Dermatological Surgical History: Reports: None - Past Imaging History Past Imaging History: Reports: Angiography (Heart catheterization in 2002), Barium Enema (08/02/09 with lesions and possible polyps noted in the transverse colon and hepatic flexure as above), Cardiac Echo (08/26/08 with ejection fraction of 65%), CAT Scan (Head on 06/16/08), DEXA Scan (08/08/11), PFT (04/29/05) , Stress Testing (Suboptimal Cardiolite stress test on 04/13/03 with findings as above), Ultrasound (Renal ultrasound on 12/25/08) Social & Family History - Family History Cardiac: Reports: CAD, Heart Murmur, Hypertension, NH, Other (See Below) Other Cardiac Family History: Father with fatal NH at age 52, mother with CHF, hypertension in parents and 3 sisters, one sister with heart murmur secondary to rheumatic disease, 2 sisters with coronary artery disease with 1 having a CABG Psychiatric: Reports: Anxiety, Depression, Other (See Below) Other Psychiatric Family History: Brother with alcohol abuse and anxiety depression disorder Endocrine/Metabolic: Reports: Diabetes, type II, IDDM, Other (See Below) Other Endocrine/Metabolic Family History: Mother with hypothyroidism, father and son with AODM with mother and sister having IDDM, Oncologic: Reports: Colon, Other (See Below) Other Oncologic Family History: Sister with colon cancer in her 50s, brother with fatal prostate cancer in his 50s - Tobacco Use Smoking Status *Q: Current Every Day Smoker Years of Tobacco use: 60 Packs/Tins Daily: 1 - Caffeine Use Caffeine Use: Reports: None - Recreational Drug Use Recreational Drug Use: No - Living Situation & Occupation Living situation: Reports: (1965, one child), with Family (, 3 great grandchildren and her granddaughter) 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 ED EXAM, GI/ABD - Physical Exam Exam: See Below Exam Limited By: No Limitations General Appearance: Alert, WD/WN, No Apparent Distress Eyes: Bilateral: Normal Appearance, EOMI Nose: No: Nasal Deformity, Nasal Swelling, Nasal Drainage Throat/Mouth: Normal Lips, Normal Voice, No Airway Compromise Head: Atraumatic, Normocephalic Neck: Supple Respiratory/Chest: No Respiratory Distress, Lungs Clear, Normal Breath Sounds, No Accessory Muscle Use Cardiovascular: Regular Rate, Rhythm, No Murmur GI/Abdominal Exam: Normal Bowel Sounds, Soft, Non-Tender, No Distention (no obvious distension noted on examination). No: Guarding, Rigid, Rebound, Tender (Female) Exam: Deferred Rectal (Female) Exam: Deferred Back Exam: No: CVA Tenderness (L), CVA Tenderness (R), Muscle Spasm, Paraspinal Tenderness, Vertebral Tenderness Extremities: Normal Capillary Refill Neurological: Alert, Oriented, Normal Cognition, Normal Gait, No Motor/Sensory Deficits Psychiatric: Normal Affect, Normal Mood Skin Exam: Warm, Dry, Intact, Normal Color Course - Vital Signs Last Recorded V/S: Last Vital Signs Temp 36.6 C 01/29/19 15:35 Pulse 74 01/29/19 15:35 Resp 18 01/29/19 15:35 BP 145/80 H 01/29/19 15:35 Pulse Ox 99 01/29/19 15:35 - Orders/Labs/Meds Orders: Active Orders 24 hr Category Date Time Status Abdomen 1V Upright [CR] Stat Exams 01/29/19 15:47 Ordered - Radiology Interpretation Free Text/Narrative:: Upright abdominal film performed. No air under diaphragm identified. No evidence of obstruction. - Re-Assessments/Exams Free Text/Narrative Re-Assessment/Exam: 01/29/19 16:52 Suspect patient complaint is related to the colonoscopy but do not, at this time , suspect perforation or acute abdomen. Normal bowel sounds, abdomen soft. Patient says that she feels better now and symptoms have improved. Recommended patient to continue to observe for changes and stick to a bland diet for the next 24 hours. Precautions reviewed. To follow up as needed. Departure - Departure Time of Disposition: 16:44 Disposition: Home, Self-Care 01 Condition: Good Clinical Impression: S/P colonoscopy, Abdominal bloating - Discharge Information *PRESCRIPTION DRUG MONITORING PROGRAM REVIEWED*: Not Applicable *COPY OF PRESCRIPTION DRUG MONITORING REPORT IN PATIENT BECKY: Not Applicable Referrals: Autumn Baires PA-C [Primary Care Provider] - Forms: ED Department Discharge Additional Instructions: Avoid fried food, dairy, and wheat today and tomorrow. Stick to soups and bland food. Observe for changes such as worsening abdominal pain and follow up again for a recheck if you have any concerns. - My Orders Last 24 Hours: My Active Orders 01/29/19 15:47 Abdomen 1V Upright [CR] Stat - Assessment/Plan Last 24 Hours: My Active Orders 01/29/19 15:47 Abdomen 1V Upright [CR] Stat
== END 2019-01-29 16:55 | disposition home or self-care (01) ==
LOC: LL.ED 15:28
DX: R14.0 Abdominal distension (gaseous) (principal); I11.0 Hypertensive heart disease with heart failure; I50.9 Heart failure, unspecified; E11.21 Type 2 diabetes mellitus with diabetic nephropathy; E11.40 Type 2 diabetes mellitus with diabetic neuropathy, unspecified; J44.9 Chronic obstructive pulmonary disease, unspecified; F17.210 Nicotine dependence, cigarettes, uncomplicated; Z88.2 Allergy status to sulfonamides; Z79.899 Other long term (current) drug therapy; Z98.890 Other specified postprocedural states
CPT/HCPCS: 74018; 99284-25

== ENCOUNTER 2019-02-16 18:58 | Emergency (ER) | payer MEDICARE, OTHER ==
[2019-02-16 19:07] VITALS: BP 145/71
--- NOTE | 2019-02-16 19:19 | EDM.PDOC ---
ED HPI GENERAL MEDICAL PROBLEM - General Chief Complaint: General Stated Complaint: L ear pain, head congestion Time Seen by Provider: 02/16/19 19:10 Source of Information: Reports: Family (), Other ([facility]). Denies: Old Records ([facility] chart/EMR) History Limitations: Reports: Other (Presbycusis) - History of Present Illness INITIAL COMMENTS - FREE TEXT/NARRATIVE: The patient was brought to the emergency room via private automobile by her for evaluation of increasing otalgia over the last couple of days with left-sided bloody ear drainage starting earlier this morning. The patient did take 1 Aleve at 10 AM this morning, however persistent 10 sharp left-sided otalgia. The patient has apparently been using a Q-tip, however only on the outer auricular region with no history of injury, deep penetration, etc.. She has had a greenish nasal drainage and nonproductive cough during the last couple of weeks with evaluation by her regular provider about one week ago with no antibiotics prescribed at that time. She is on chronic Macrobid therapy for uroprophylaxis, however denies any current UTI symptoms. The patient also denies any recent fever, wheezing, dyspnea, etc.. Her Accu-Cheks have been averaging in the 130s at home. No recent history of abdominal pain, heartburn, nausea, diarrhea, melena, gross hematochezia, or any food intolerance, including fatty foods, etc.. The patient denies any chest pain/pressure, heart flutter, dizziness, orthostasis, orthopnea, diaphoresis, paresthesias, recent decreased exercise tolerance, or any other anginal-type symptoms. Onset: Gradual, Other (As above) Onset Date: 02/15/19 Duration: Constant, Getting Worse Location: Reports: Other (Left ear). Denies: Head, Face, Neck, Chest, Abdomen, Back, Upper Extremity, Left, Upper Extremity, Right, Radiates to Quality: Reports: Same as Previous Episode, Sharp, Throbbing Severity: Severe Improves with: Reports: None Worsens with: Reports: None Context: Reports: Other (As above). Denies: Sick Contact, Trauma Associated Symptoms: Reports: Cough. 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: NSAIDS Left Ear Pain Score (Numeric/FACES): 10 - Related Data Allergies Allergy/AdvReac Type Severity Reaction Status Date / Time Sulfa (Sulfonamide Allergy Nausea Verified 02/16/19 19:15 Antibiotics) Home Meds: Home Meds Lovastatin [Mevacor] 40 mg PO DAILY 01/04/17 [History] Nitrofurantoin Macrocrystal [Macrodantin] 50 mg PO DAILY 01/04/17 [History] Pramipexole [Mirapex] 2 tab PO DAILY@1800 01/04/17 [History] Triamterene/Hydrochlorothiazid [Triamterene-HCTZ 37.5-25 MG] 1 each PO DAILY 10/11 [History] metFORMIN [Glucophage] 850 mg PO BIDMEALS 01/04/17 [History] Melatonin 1 tab PO BEDTIME 03/23/17 [History] Aspirin [Ecotrin] 325 mg PO DAILY 01/29/19 [History] Meclizine HCl 12.5 mg PO Q4HR PRN 01/29/19 [History] Pramipexole [Mirapex] 0.25 mg PO BEDTIME 01/29/19 [History] traZODone HCl [Trazodone HCl] 50 mg PO BEDTIME PRN 01/29/19 [History] Amoxicillin/Potassium Clav [Augmentin 875-125 Tablet] 1 each PO BIDMEALS #20 tablet 02/16/19 [Rx] Gentamicin Sulfate 2 drop EARLF QID #1 bottle 02/16/19 [Rx] Past Medical History HEENT History: Reports: Cataract, Hard of Hearing, Impaired Vision, Other (See Below). Denies: Allergic Rhinitis, Glaucoma, Macular Degeneration, Otitis Media , Retinal Detachment Other HEENT History: Patient wears glasses with no history of diabetic retinopathy. Known chronic vertigo. Moderate bilateral presbycusis with no current hearing aide therapy. Cardiovascular History: Reports: Arrhythmia, CAD, Heart Failure, Heart Murmur, High Cholesterol, Hypertension, Other (See Below). Denies: Afib, Aneurysm, Blood Clots/VTE/DVT, AR, PVD, Syncope Other Cardiovascular History: History of WPW with cardiac ablation as below, coronary artery disease with probable anterolateral cardiac ischemia, no history of AR or other cardiac procedures, complete right bundle branch block; PACs, PVCs, and occasional couplets with exercise, cardiomegaly with left atrial enlargement and history of mild mitral valve insufficiency and tricuspid valve insufficiency by echocardiogram, dyslipidemia. Aortic valve stenosis by clinical exam. Respiratory History: Reports: Bronchitis, Recurrent, COPD, Intubation, Previous. Denies: Asthma, Intubation, Difficult, PE, Pneumonia, Recurrent, Pneumothorax, Sleep Apnea, TB Gastrointestinal History: Reports: Colon Polyp, Diverticulosis, GERD, Hemorrhoids, Other (See Below). Denies: Celiac Disease, Cholelithiasis, Chronic Constipation, Chronic Diarrhea, Fecal Incontinence, Gastritis, GI Bleed , Hepatitis, Inflammatory Bowel Disease, Irritable Bowel Syndrome, Jaundice, Pancreatitis Other Gastrointestinal History: History of multiple recurrent colonic polyps including hyperplastic colonic polyps in the rectosigmoid region with polyps of unknown character in the transverse colon and hepatic flexure. Severe sigmoid diverticulosis with additional multiple rectal polyps and tortuous colon by last colonoscopy on 01/28/19. Genitourinary History: Reports: Chronic Renal Insuffiency, Diabetic Nephropathy , Retention, Urinary, Urinary Incontinence, UTI, Recurrent, Other (See Below). Denies: Acute Renal Failure, Renal Calculus, STD Other Genitourinary History: Urethral stenosis with daily self-catheterization, benign renal cysts, history of microalbuminemia with mild diabetic nephropathy. Recurrent UTIs with current Macrobid uroprophylaxis therapy. CHILDREN LIBRARIAN History: Reports: Endometriosis, . Denies: Dysfunctional Uterine Bleeding, Fibroids, Spontaneous : 1 Para: 1 LMP (Approximate): Other (See Below) Other CHILDREN LIBRARIAN History: Full term without complications during or delivery. Surgical menopause secondary to her endometriosis. Musculoskeletal History: Reports: Arthritis, Back Pain, Chronic, Fracture, Neck Pain, Chronic, Osteoarthritis, Osteoporosis, Other (See Below). Denies: Amputation, Gout, RA, SLE Other Musculoskeletal History: Left 10th rib fracture on 06/14/12. Kyphosis. Neurological History: Reports: Neuropathy, Diabetic, Neuropathy, Peripheral, Vertigo, Other (See Below). 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 Denies: Abuse , Victim of, ADD, ADHD, Addiction, Psych Hospitalization(s), PTSD, Suicide Attempt, Suicidal Ideation Endocrine/Metabolic History: Reports: Diabetes, Type II, Osteoporosis. Denies: Diabetes, Gestational, Diabetes, Type I, Diabetes Mellitus, Type 3c, Hypothyroidism, IDDM Hematologic History: Reports: None, Anemia. Denies: Blood Transfusion(s), Iron Deficiency Immunologic History: Reports: None. Denies: AIDS, HIV, SLE Oncologic (Cancer) History: Reports: None. Denies: Basal Cell Carcinoma, Breast , Cervix, Colon, Hodgkin's Lymphoma, Leukemia, Lymphoma, Malignant Melanoma, Non -Hodgkin's Lymphoma, Squamous Cell Carcinoma Dermatologic History: Reports: None. Denies: Eczema, Psoriasis - Infectious Disease History Infectious Disease History: Reports: Measles. Denies: C-Difficile, Chicken Pox (Uncertain), Meningitis, Mononucleosis, MRSA, Mumps, Pertussis (Whooping Cough) , Rheumatic Fever, Rubella, Scarlet Fever, Shingles, TB, VRE - Past Surgical History Head Surgeries/Procedures: Reports: None HEENT Surgical History: Reports: Cataract Surgery, Oral Surgery, Other (See Below). Denies: Adenoidectomy, Eye Surgery, Laser Surgery, LASIK, Myringotomy w Tube(s), Naso-Sinus Surgery, Tonsillectomy Other HEENT Surgeries/Procedures: Bilateral cataract surgery in 2016, multiple teeth extractions with complete upper dentures patient not wearing lower partial dentures Cardiovascular Surgical History: Reports: Cardiac Ablation, Other (See Below). Denies: Varicose, Vascular Surgery Other Cardiovascular Surgeries/Procedures: 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 Respiratory Surgical History: Reports: None. Denies: Thoracentesis GI Surgical History: Reports: Colonoscopy, Polypectomy, Other (See Below). Denies: Appendectomy, Cholecystectomy, EGD, Hernia, Abdominal, Hernia, Inguinal , Hernia Repair/Other Other GI Surgeries/Procedures: Last colonoscopy on 01/28/19 at [place] with previous colonoscopy in late [address] [facility] and previous colonoscopy in our facility on 07/19/09 with barium enema as below. Female Surgical History: Reports: Breast Biopsy, Hysterectomy, Salpingo- Oophorectomy, Other (See Below). Denies: D&C, Tubal Ligation Other Female Surgeries/Procedures: Complete hysterectomy with bilateral salpingo-oophorectomy in her late 20s secondary to endometriosis. Apparent previous breast biopsy for benign disease-side unknown. Endocrine Surgical History: Reports: None. Denies: Thyroid Biopsy Neurological Surgical History: Reports: None. Denies: C-Spine, Discectomy, Laminectomy, Lumbar Spine, Sacral Spine, Spinal Fusion, Thoracic Spine, Vertebroplasty Musculoskeletal Surgical History: Reports: None. Denies: Arthroscopic Procedure , Carpal Tunnel, Ganglion Cyst, Joint Replacement, ORIF, Shoulder Surgery Oncologic Surgical History: Reports: None Dermatological Surgical History: Reports: None - Past Imaging History Past Imaging History: Reports: Angiography (Heart catheterization in 2002), Barium Enema (08/02/09 with lesions and possible polyps noted in the transverse colon and hepatic flexure as above), Cardiac Echo (08/26/08 with ejection fraction of 65%), CAT Scan (Head on 06/16/08), DEXA Scan (08/08/11), Mammogram ( Last mammogram on 07/19/18.), PFT (04/29/05), Stress Testing (Suboptimal Cardiolite stress test on 04/13/03 with findings as above), Ultrasound (Renal ultrasound on 12/25/08) Social & Family History - Family History Cardiac: Reports: CAD, Heart Failure, Heart Murmur, Hypertension, AR, Other ( See Below) Other Cardiac Family History: Father with fatal AR at age 52, mother with CHF, hypertension in parents and 3 sisters, one sister with heart murmur secondary to rheumatic disease, 2 sisters with coronary artery disease with 1 having a CABG GI: Reports: Colon Polyps, Other (See Below) Other GI Family History: History of colon cancer as below. Psychiatric: Reports: Anxiety, Depression, Other (See Below) Other Psychiatric Family History: Brother with alcohol abuse and anxiety depression disorder Endocrine/Metabolic: Reports: Diabetes, type II, IDDM, Other (See Below) Other Endocrine/Metabolic Family History: Mother with hypothyroidism, father and son with AODM with mother and sister having IDDM, Oncologic: Reports: Colon, Other (See Below) Other Oncologic Family History: Sister with colon cancer in her 50s, brother with fatal prostate cancer in his 50s - Tobacco Use Smoking Status *Q: Current Every Day Smoker Tobacco Use Within Last Twelve Months: Cigarettes Years of Tobacco use: 59 Packs/Tins Daily: 2 Used Tobacco, but Quit: No Smoking Cessation Information Provided To Patient: Yes Second Hand Smoke Exposure: Yes Source of Second Hand Smoke Exposure: smokes Second Hand Smoke Education Provided: Yes - Caffeine Use Caffeine Use: Reports: None. Denies: Coffee, Energy Drinks, Soda, Tea - Alcohol Use Alcohol Use History: No Days Per Week of Alcohol Use: 0 Number of Drinks Per Day: 0 Number of Drinks Per Day Comment: No previous DWIs, problems with alcohol abuse , etc. 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 ED EXAM, GENERAL - Physical Exam Exam: See Below Exam Limited By: No Limitations General Appearance: Alert, WD/WN, No Apparent Distress Eye Exam: Bilateral Eye: EOMI, Normal Inspection (No nystagmus), PERRL Ears: Normal External Exam, Hearing Loss (Moderate to severe bilateral presbycusis with no current hearing a therapy). No: Normal TMs (Left TM difficult to visualize with probable TM perforation with some mild bloody discharge and additional moderate purulent drainage and no evidence of the ear canal injury.) Nose: Normal Mucosa, No Blood, Nasal Drainage (Mild bilateral purulent nasal drainage). No: Nasal Tenderness Throat/Mouth: Normal Lips, Normal Oropharynx, Normal Voice, No Airway Compromise. No: Normal Teeth (Complete upper dentures with multiple missing teeth lowers and patient not having lower dentures), Dysphagia, Perioral Cyanosis Head: Atraumatic, Normocephalic. No: Facial Swelling, Facial Tenderness, Sinus Tenderness Neck: Supple, Non-Tender, Full Range of Motion, Carotid Bruit (Moderate bilateral carotid bruits versus transmitted heart sounds). No: Lymphadenopathy (L), Lymphadenopathy (R), Thyromegaly Respiratory/Chest: No Respiratory Distress, Lungs Clear, Normal Breath Sounds, No Accessory Muscle Use, Chest Non-Tender. No: Pleural Rub, Retractions Cardiovascular: Normal Peripheral Pulses, Regular Rate, Rhythm, No Edema, No Gallop, No JVD, No Rub, Diastolic Murmur (Aortic valve insufficiency murmur borderline), Systolic Murmur (2/6 ARMIDA at the aortic valve). No: Gallop/S3, Gallop/S4, Friction Rub GI/Abdominal: Normal Bowel Sounds, Soft, Non-Tender, No Organomegaly, No Distention, No Abnormal Bruit, No Mass, Other (Obese). No: Guarding (Female) Exam: Deferred Rectal (Female) Exam: Deferred Back Exam: Full Range of Motion, Other (Moderate kyphosis). No: CVA Tenderness (L), CVA Tenderness (R), Muscle Spasm Extremities: Normal Inspection, Normal Range of Motion, Non-Tender, No Pedal Edema, Normal Capillary Refill. No: Niharika's Sign Neurological: Alert, Oriented, CN II-XII Intact, Normal Cognition, Normal Gait, No Motor/Sensory Deficits Psychiatric: Normal Affect, Normal Mood Skin Exam: Warm, Dry, Intact, Normal Color, No Rash. No: Diaphoretic, Wound/ Incision Lymphatic: No Adenopathy Course - Vital Signs Last Recorded V/S: Last Vital Signs Temp 37.3 C 02/16/19 18:59 Pulse 94 02/16/19 18:59 Resp 18 02/16/19 18:59 BP 145/71 H 02/16/19 18:59 Pulse Ox 96 02/16/19 18:59 Vital Signs - 24 hr 02/16/19 18:59 Temperature [ 37.3 C Oral] Pulse, 94 Peripheral [ Pulse Oximetry] Respiratory 18 Rate Blood Pressure 145/71 H [Right Arm] O2 Sat by Pulse 96 Oximetry - Orders/Labs/Meds Orders: Active Orders 24 hr Category Date Time Status CULTURE EAR [RM] Stat Lab 02/16/19 19:19 Ordered Obtain Past Medical Record [OM.PC] Routine Oth 02/16/19 19:19 Active Labs: Specimen collected from left EAC for culture and sensitivity. Meds: Medications Discontinued Medications Generic Name Dose Route Start Last Admin Trade Name Freq PRN Reason Stop Dose Admin Ceftriaxone Sodium 1 gm 02/16/19 19:27 02/16/19 19:31 Rocephin IM 02/16/19 19:28 1 gm ONETIME ONE Administration Ketorolac Tromethamine 60 mg 02/16/19 19:35 02/16/19 19:39 Toradol IM 02/16/19 19:36 60 mg ONETIME ONE Administration Lidocaine HCl 5 ml 02/16/19 19:28 02/16/19 19:31 Xylocaine-Mpf 1% INJECT 02/16/19 19:29 5 ml ONETIME ONE Administration - Radiology Interpretation Free Text/Narrative:: None Departure - Departure Time of Disposition: 20:30 Disposition: Home, Self-Care 01 Condition: Good Clinical Impression: Tobacco abuse counseling, Peptic reflux disease, Mixed anxiety depressive disorder, Osteoarthritis, Diabetes mellitus, Coronary artery disease, COPD ( chronic obstructive pulmonary disease), Otitis media, Aortic valve stenosis - Discharge Information *PRESCRIPTION DRUG MONITORING PROGRAM REVIEWED*: Not Applicable *COPY OF PRESCRIPTION DRUG MONITORING REPORT IN PATIENT BECKY: Not Applicable Prescriptions: Amoxicillin/Potassium Clav [Augmentin 875-125 Tablet] 1 each PO BIDMEALS #20 tablet Gentamicin Sulfate 2 drop EARLF QID #1 bottle Instructions: Steps to Quit Smoking, [id number], Health Risks of Smoking, Ear Drainage, [id number], Ketorolac injection, Ceftriaxone injection, Otitis Media, Adult, [id number] Referrals: Autumn Baires PA-C [Primary Care Provider] - Forms: ED Department Discharge Additional Instructions: 1. Followup with your regular provider in 10-14 days as directed. Bring these discharge instructions with you to that visit. 2. Tylenol 650 mg by mouth every 4 hours and/or OTC Aleve 1-2 tabs by mouth every 12 hours with food as directed./needed. You may stagger these medications for 48-72 hours only. No additional Aleve for 6 hours secondary to medications given in the emergency room. 3. Stop all tobacco use ESTEVAN as directed/per provided information and consider contacting Quit LIne, etc.. 4. Immediately after this visit verify that your cellular telephone's voicemail has been activated and is empty. Also verify that your home telephone 's answering machine is operating properly and has space to receive messages. Note that it is sometimes necessary for us to be able to contact you at a later date to discuss your medical care. 5. Please remember that we are ALWAYS here for you and want to answer any questions you may have. Feel free to call the hospital any time and we call you back ESTEVAN. - Problem List & Annotations (1) Otitis media SNOMED Code(s): 93381957 Code(s): H66.90 - OTITIS MEDIA, UNSPECIFIED, UNSPECIFIED EAR Status: Acute Priority: High Current Visit: Yes Onset Date: ~02/15/19 Annotation/ Comment:: Severe left-sided otitis media with TM perforation as above. Specimen collected for culture and sensitivity. IM Rocephin given in the emergency room with initiation of Augmentin therapy on an outpatient basis starting tomorrow morning. Diarrhea precautions given. Patient was also provided an emergency room prescription for gentamicin ophthalmic solution with initial dose given in the emergency room. Note that an ophthalmic rather than otic suspension was prescribed secondary to TM perforation in order to avoid secondary otalgia from this medication. IM Toradol given for pain control. Close follow-up by regular provider. Note current presbycusis with consideration of audiology evaluation for possible hearing aid therapy. Probable concomitant sinusitis based on patient history. Qualifiers: Otitis media type: suppurative Chronicity: acute Laterality: left Recurrence: non-recurrent Spontaneous tympanic membrane rupture: with spontaneous rupture Qualified Code(s): H66.012 - Acute suppurative otitis media with spontaneous rupture of ear drum, left ear (2) COPD (chronic obstructive pulmonary disease) SNOMED Code(s): 43422204 Code(s): J44.9 - CHRONIC OBSTRUCTIVE PULMONARY DISEASE, UNSPECIFIED Status : Chronic Priority: Medium Current Visit: Yes Annotation/Comment:: Stable by patient history with exception of probable bronchitis and sinusitis at this time, however no recent history of fever or known exposure to infection. Augmentin therapy prescribed as above. Patient is not currently on any inhalers or nebulizer treatments. Close follow-up by regular provider with consideration of possible PFTs in the future after current symptoms resolve. Tobacco cessation once again strongly encouraged as below. Qualifiers: COPD type: emphysema Emphysema type: panlobular Qualified Code(s): J43.1 - Panlobular emphysema (3) Aortic valve stenosis SNOMED Code(s): 22879908 Code(s): I35.0 - NONRHEUMATIC AORTIC (VALVE) STENOSIS Status: Chronic Priority: Medium Current Visit: Yes Annotation/Comment:: Mild progression of her aortic valve stenosis with possible additional aortic diastolic murmur based on today's clinical exam in comparison to my previous exam in this emergency room on 03/23/17. Note distant echocardiogram as above showed only mild valvular disease. Continue close follow-up with regular provider with consideration of repeat echocardiogram, etc. depending on her clinical course. No chest pain or anginal type symptoms at this time. Qualifiers: Cardiac valve disease etiology: etiology unspecified Qualified Code(s): I35.0 - Nonrheumatic aortic (valve) stenosis (4) Coronary artery disease SNOMED Code(s): 44652764 Code(s): I25.10 - ATHSCL HEART DISEASE OF [place] CORONARY ARTERY W/O ANG PCTRS Status: Chronic Priority: Medium Current Visit: Yes Annotation/ Comment:: Stable by patient history with no recent anginal complaints as above. Qualifiers: Coronary Disease-Associated Artery/Lesion type: [place] artery [place] vs. transplanted heart: [place] heart Associated angina: without angina Qualified Code(s): I25.10 - Atherosclerotic heart disease of [place] coronary artery without angina pectoris (5) Diabetes mellitus SNOMED Code(s): 28611668 Code(s): E11.9 - TYPE 2 DIABETES MELLITUS WITHOUT COMPLICATIONS Status: Chronic Priority: Medium Current Visit: Yes Annotation/Comment:: Stable by patient history with home Accu-Cheks under good control by her history as above. 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: without senior living use Diabetes mellitus complication status: with neurologic complications Diabetes mellitus complication detail: with polyneuropathy Qualified Code(s): E11.42 - Type 2 diabetes mellitus with diabetic polyneuropathy (6) Osteoarthritis SNOMED Code(s): 051609714 Code(s): M19.90 - UNSPECIFIED OSTEOARTHRITIS, UNSPECIFIED SITE Status: Chronic Priority: Medium Current Visit: Yes Annotation/Comment:: Stable by history Qualifiers: Osteoarthritis location: multiple joints Osteoarthritis type: primary Qualified Code(s): M15.0 - Primary generalized (osteo)arthritis (7) Hypertension SNOMED Code(s): 74284954 Code(s): I10 - ESSENTIAL (PRIMARY) HYPERTENSION Status: Chronic Priority : Medium Current Visit: Yes Annotation/Comment:: Blood pressure somewhat elevated on arrival, however otherwise stable by patient history. Qualifiers: Hypertension type: essential hypertension Qualified Code(s): I10 - Essential (primary) hypertension (8) Mixed anxiety depressive disorder SNOMED Code(s): 602463424 Code(s): F41.8 - OTHER SPECIFIED ANXIETY DISORDERS Status: Chronic Priority: Medium Current Visit: Yes Annotation/Comment:: Stable by history. Continue to observe closely by regular provider (9) Peptic reflux disease SNOMED Code(s): 909216625 Code(s): K21.9 - GASTRO-ESOPHAGEAL REFLUX DISEASE WITHOUT ESOPHAGITIS Status: Chronic Priority: Medium Current Visit: Yes Annotation/Comment:: Stable by history (10) Tobacco abuse counseling SNOMED Code(s): 779793051, 145002049, 610191948 Code(s): Z71.6 - TOBACCO ABUSE COUNSELING Status: Chronic Priority: Medium Current Visit: No Annotation/Comment:: Tobacco cessation once again strongly encouraged both for the patient and her with information provided prior to discharge. - Problem List Review Problem List Initiated/Reviewed/Updated: Yes - My Orders Last 24 Hours: My Active Orders 02/16/19 19:19 CULTURE EAR [RM] Stat Obtain Past Medical Record [OM.PC] Routine - Assessment/Plan Last 24 Hours: My Active Orders 02/16/19 19:19 CULTURE EAR [RM] Stat Obtain Past Medical Record [OM.PC] Routine Assessment:: As above Plan: As above. Extensive precautions were given to the patient and her , who are in agreement with the treatment plan. See Patient Instructions for further treatment and plan.
[2019-02-16] MEDS: cefTRIAXone 1 GM Vial IM ONE (19:31)
[2019-02-16] MEDS: Ketorolac 60 MG/2 ML SDV IM ONE (19:39)
== END 2019-02-16 20:25 | disposition home or self-care (01) ==
LOC: LL.ED 18:58
DX: H66.92 Otitis media, unspecified, left ear (principal); K21.9 Gastro-esophageal reflux disease without esophagitis; F41.8 Other specified anxiety disorders; M15.0 Primary generalized (osteo)arthritis; I25.10 Atherosclerotic heart disease of native coronary artery without angina pectoris; J44.9 Chronic obstructive pulmonary disease, unspecified; I35.0 Nonrheumatic aortic (valve) stenosis; I13.0 Hypertensive heart and chronic kidney disease with heart failure and stage 1 through stage 4 chronic kidney disease, or unspecified chronic kidney disease; I50.9 Heart failure, unspecified; N18.9 Chronic kidney disease, unspecified; E11.22 Type 2 diabetes mellitus with diabetic chronic kidney disease; F17.210 Nicotine dependence, cigarettes, uncomplicated; Z88.2 Allergy status to sulfonamides; Z79.899 Other long term (current) drug therapy; Z71.6 Tobacco abuse counseling
CPT/HCPCS: 87070; 96372; 99283; J0696; J1885; J2001

== ENCOUNTER 2022-06-02 18:39 | Emergency (ER) | payer MEDICARE, OTHER ==
[2022-06-02 18:44] VITALS: BP 137/65; PULSE 91
== END 2022-06-02 19:40 | disposition home or self-care (01) ==
LOC: LL.ED 18:39
DX: H66.92 Otitis media, unspecified, left ear (principal); E11.21 Type 2 diabetes mellitus with diabetic nephropathy; E11.42 Type 2 diabetes mellitus with diabetic polyneuropathy; I25.10 Atherosclerotic heart disease of native coronary artery without angina pectoris; E11.22 Type 2 diabetes mellitus with diabetic chronic kidney disease; I13.0 Hypertensive heart and chronic kidney disease with heart failure and stage 1 through stage 4 chronic kidney disease, or unspecified chronic kidney disease; N18.9 Chronic kidney disease, unspecified; I50.9 Heart failure, unspecified; E78.00 Pure hypercholesterolemia, unspecified; J44.9 Chronic obstructive pulmonary disease, unspecified; F17.210 Nicotine dependence, cigarettes, uncomplicated; Z88.2 Allergy status to sulfonamides; Z79.899 Other long term (current) drug therapy; Z79.84 Long term (current) use of oral hypoglycemic drugs
CPT/HCPCS: 99282; 99283

== ENCOUNTER 2022-07-10 15:19 | Emergency (ER) | payer MEDICARE, OTHER ==
[2022-07-10] MEDS: EPINEPHrine 1 MG/ML SDV IM ONE (15:19)
[2022-07-10] MEDS: methylPREDNISolone Sodium Succinate 125 MG/2 ML SDV IVPUSH ONE (15:36)
[2022-07-10] MEDS: methylPREDNISolone Sodium Succinate 125 MG/2 ML SDV ONE (15:39)
[2022-07-10] MEDS: diphenhydrAMINE 50 MG/ML SDV IVPUSH ONE (15:39)
[2022-07-10] MEDS: EPINEPHrine 1 MG/ML SDV ONE (15:48)
[2022-07-10 16:08] LABS: ANION GAP 18.9 meq/L (7-15)
[2022-07-10] MEDS: Sodium Chloride 0.9% 500 ML IV SCH (17:22)
[2022-07-10 18:28] VITALS: PULSE 85
[2022-07-10] MEDS ORDERED: Sodium Chloride 0.9% 500 ML IV SCH (18:45)
[2022-07-10] MEDS: cefTRIAXone 1 GM in Sodium Chloride 0.9% 100 ML IV ONE (18:46)
[2022-07-10 23:03] VITALS: BP 96/50
== END 2022-07-10 19:47 | disposition left against medical advice (07) ==
LOC: SUPCPDRO 15:19 → LL.ED 15:19
DX: N39.0 Urinary tract infection, site not specified (principal); T36.0X5A Adverse effect of penicillins, initial encounter; J44.1 Chronic obstructive pulmonary disease with (acute) exacerbation; R74.02 Elevation of levels of lactic acid dehydrogenase [LDH]; I25.10 Atherosclerotic heart disease of native coronary artery without angina pectoris; E78.00 Pure hypercholesterolemia, unspecified; E11.22 Type 2 diabetes mellitus with diabetic chronic kidney disease; E11.42 Type 2 diabetes mellitus with diabetic polyneuropathy; E11.21 Type 2 diabetes mellitus with diabetic nephropathy; I13.0 Hypertensive heart and chronic kidney disease with heart failure and stage 1 through stage 4 chronic kidney disease, or unspecified chronic kidney disease; N18.9 Chronic kidney disease, unspecified; I50.9 Heart failure, unspecified; Z88.2 Allergy status to sulfonamides; Z79.84 Long term (current) use of oral hypoglycemic drugs; Z79.82 Long term (current) use of aspirin; Z79.899 Other long term (current) drug therapy
CPT/HCPCS: 36415; 71046; 80053; 81001; 83605; 83735; 83880; 85025; 87086; 87088; 87186; 96361; 96365; 96372; 96375; 99284; J0171; J0696; J1200; J2930; J3490; J7040